=== PATIENT | male | born 2000 | race Caucasian/White ===

== ENCOUNTER 2018-12-22 14:01 | Emergency (ER) | payer SELFPAY ==
[2018-12-22] MEDS: IBUPROFEN 600 MG TAB PO ×2 (16:20→16:24)
== END 2018-12-22 16:20 | disposition home or self-care (01) ==
LOC: FTE 14:01
DX: S39.92XA Unspecified injury of lower back, initial encounter (principal); S33.5XXA Sprain of ligaments of lumbar spine, initial encounter; V49.40XA Driver injured in collision with unspecified motor vehicles in traffic accident, initial encounter
CPT/HCPCS: 99283